=== PATIENT | male | born 1985 | race African-American/Black ===

== ENCOUNTER 2016-11-04 18:12 | Emergency (ER) | payer SELFPAY ==
[~2016-11-04] VITALS: Ht 182.9 cm; Wt 77.1 kg
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
[2016-11-04] MEDS ORDERED: CYCLOBENZAPRINE10 MG ORAL (19:16)
[2016-11-04 20:27] VITALS: BP 120/75
[2016-11-04 20:28] VITALS: BP 120/75
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
--- NOTE | 2016-11-05 10:47 | Diagnostic Imaging Report ---
Indication: Neck pain Technique: CT cervical spine was performed utilizing automated exposure control without intravenous contrast material. Axial and coronal images were generated. CT dose: Total DLP 605 mGycm; CTDI vol 23.4 mGy Comparison: None Findings: There is no acute fracture. There is straightening of the cervical lordosis. There is slight anterior wedging of C3. Prevertebral soft tissues are within normal limits. There is chronic appearing deformity of the left C4/C5 facets. Bone mineralization is normal. Craniocervical alignment is normal. Lung apices are clear. Impression: No acute fracture. Straightening of the cervical lordosis. Chronic appearing slight anterior wedging of C3. Chronic appearing deformity of the left C4/C5 facets. Clinical correlation recommended. The CT scanner at [facility] is accredited by the [employer] and the scans are performed using protocols designed to limit radiation exposure to as low as reasonably achievable to attain images of sufficient resolution adequate for diagnostic evaluation.
== END 2016-11-04 20:28 | disposition home or self-care (01) ==
LOC: EMR 19:06
DX: S00.93XA Contusion of unspecified part of head, initial encounter (principal); S16.1XXA Strain of muscle, fascia and tendon at neck level, initial encounter; V43.52XA Car driver injured in collision with other type car in traffic accident, initial encounter; Y93.9 Activity, unspecified; Y92.410 Unspecified street and highway as the place of occurrence of the external cause; Z88.6 Allergy status to analgesic agent
CPT/HCPCS: 70450; 72125; 99284